=== PATIENT | male | born 1985 | race Caucasian/White ===

== ENCOUNTER 2016-08-21 09:30 | Emergency (ER) | payer SELFPAY ==
--- NOTE | 2016-09-07 08:17 | ER ---
ADMIT: 08/21/2016 RM/LOC: ER [facility] MR#: [id number] [place], [place] [id number] [address] [place] [address] Emergency Room Report SEX: M AGE: 31 : 1985 DATE: 08/21/2016 ADDENDUM: CHIEF COMPLAINT: Abscess. HISTORY OF PRESENT ILLNESS: This is a 31-year-old male who developed a sore on his buttocks last Lamont. He said it has progressively worsened, but now it is draining on its own. I am sending him home with Keflex for 7 days, having him do warm compresses and follow up with his PCP if worsen. CLINICAL IMPRESSION: Abscess to buttocks. EEDNILSON Soto / Nelson Kaba MD / flory JOB #: [id number] CC: Nelson Kaba MD, Attending Physician Christopher Lewis DO, Family Physician
== END 2016-08-21 09:55 | disposition home or self-care (01) ==
LOC: ER 09:30
DX: L02.31 Cutaneous abscess of buttock (principal)